=== PATIENT | female | born 1995 | race Caucasian/White ===

== ENCOUNTER 2021-03-19 19:05 | Emergency (ER) | payer OTHER | END 2021-03-19 20:33 | disposition home or self-care (01) | LOC: FER 19:05 | DX: S16.1XXA Strain of muscle, fascia and tendon at neck level, initial encounter (principal); X58.XXXA Exposure to other specified factors, initial encounter | CPT/HCPCS: 99283; J1885 ==

== ENCOUNTER 2021-03-25 12:07 | Emergency (ER) | payer OTHER ==
[2021-03-25] MEDS ORDERED: CYCLOBENZAPRINE10 MG PO (14:41)
[2021-03-25] MEDS ORDERED: MEDROL 4MG DOSEP4 MG PO (14:41)
== END 2021-03-25 15:25 | disposition home or self-care (01) ==
LOC: FER 12:07
DX: S16.1XXA Strain of muscle, fascia and tendon at neck level, initial encounter (principal); X50.9XXA Other and unspecified overexertion or strenuous movements or postures, initial encounter
CPT/HCPCS: 70450; J1100